=== PATIENT | male | born 1970 | race Hispanic/Latino ===

== ENCOUNTER → 2018-04-22 | Day surgery (SDC) | payer OTHER ==
[~2018-04-22] MED LIST: CLINDAMYCIN HC150 MG PO; DESFLURANE 240 ML BTL INH ONE; DEXAMETHASONE SOD PHOS INJ 4 MG/ML VIAL ONE; FENTANYL CITRATE/PF 100MCG/2 ML INJ ONE; GLYCOPYRROLATE INJ 1MG/ 5 ML SYR ONE; LIDOCAINE HCL 2% LOCAL INJ 5 ML SDV VIAL INJ ONE; MIDAZOLAM HCL 2 MG/2 ML VIAL ONE; NEOSTIGMINE 5 MG/5ML SYR ONE; ONDANSETRON HCL INJ 2MG/ML 2ML 2 MG/ML VIAL ONE; OXYMETAZOLINE HCL 0.05% NAS 1 SPRAY BTL ONE; PROPOFOL IV EMULSION 10 MG/ML 20 ML VIAL ONE; ROCURONIUM BROMIDE 10 MG/ML 5ML VIAL ONE; SUCCINYLCHOLINE 200 MG/10 ML SYR ONE
--- NOTE | 2018-04-22 08:37 | Operative Report ---
DATE OF PROCEDURE: April 22, 2018 PREOPERATIVE DIAGNOSES 1. Left throat pain. 2. Left posterior true vocal cord mass. POSTOPERATIVE DIAGNOSES 1. Left throat pain. 2. Left posterior true vocal cord mass. PROCEDURE: Direct operative microlaryngoscopy with operating microscope with biopsy of the left posterior true vocal cord mass. SIGNIFICANT FINDINGS: Soft tissue mass involving the left posterior true vocal cord sent for permanent section analysis. ANESTHESIA: General endotracheal tube anesthesia with a 7 ET tube using a [place] scope. ESTIMATED BLOOD LOSS: Less than 1 mL. COMPLICATIONS: None. SPECIMENS REMOVED: Left posterior true vocal cord mass. INDICATIONS: The patient is a 48-year-old male with greater than 2 months' history of left-sided throat pain. He denies dysphagia, cough, hoarseness, postnasal drip, globus sensation, throat clearing, neck masses, shortness of breath, or fever. He is a nonsmoker. He has had no previous throat or neck surgery. Flexible fiberoptic nasal laryngoscopy revealed a soft tissue mass in the posterior aspect of left true vocal cord near the junction with the arytenoid. On examination, the patient had the findings as described on flexible fiberoptic nasal laryngoscopy. Patient is scheduled for direct operative microlaryngoscopy with excision of left true vocal cord mass under general anesthesia. Risks and complications of the procedures were thoroughly discussed with patient, and include infection, bleeding, scarring, failure to improve, need for additional operations, damage to teeth, gums, tongue, and lips, possibility of inability to visualize the larynx and need to abort the procedure, possibility of malignancy and need for further treatment, permanent worsening of hoarseness, difficulty breathing, difficulty swallowing, need for blood transfusions, damage to surrounding nerves, blood vessels and muscles, persistent throat pain. He fully understands and gives consent. PROCEDURE: Patient was taken to the operating room and placed supine on the operating table where general anesthesia was achieved, using a 7 ET tube using a [place] scope due to the anterior positioning of the larynx. Intubation did require effort, but the patient was able to be intubated with the [place] scope. Following this, the table was turned 90 degrees with the head towards the surgeon. Eyes were taped. Plastic tooth guard was placed over the upper teeth. Decadron was administered. A Ce laryngoscope was then used to visualize the larynx, which required significant effort to visualize the larynx, and required neck pressure to the left in order to visualize the larynx. The endotracheal tube was seen in good position. The mass could be seen on the left posterior vocal cord. This was biopsied and sent for permanent section analysis. Because of the tenuous nature and difficulty placing the ET tube, decision was made not to remove the ET tube for further visualization. Hemostasis was obtained with a Cottonoid pledget soaked with Afrin. The Ce laryngoscope was then removed revealing no trauma to the teeth, gums, tongue, and lips. Patient was awakened in the operating room, extubated and taken to the recovery room in good condition. Job#: [id number] SHERI REECE
[2018-04-22 09:10] VITALS: BP 147/96
== END | disposition home or self-care (01) ==
LOC: OR 05:08
PROVIDERS: ATTEND Otolaryngology
DX: J38.3 Other diseases of vocal cords (principal); Z01.810 Encounter for preprocedural cardiovascular examination
CPT/HCPCS: 31536; 88305; 88312; 93005; J1100; J2001; J2250; J2405; J2704; J3490

== ENCOUNTER 2018-04-24 13:02 | Observation (INO) | payer OTHER ==
[~2018-04-24] VITALS: Ht 170.2 cm; Wt 114.8 kg
[2018-04-24 13:51] LABS: BASOPHILS # (AUTO) 0.1 (0.0-0.1); BASOPHILS % 0.5 % (0.0-1.0); EOSINOPHILS % 0.2 % (0.0-6.0); HEMATOCRIT 46.8 % (38.2-49.6); HEMOGLOBIN 16.2 g/dL (14.0-18.0); LYMPHOCYTES # (AUTO) 2.2 (1.0-3.2); MEAN CORPUSCULAR HEMOGLOBIN 30.4 pg (28-32); MEAN CORPUSCULAR HGB CONC 34.6 g/dL (31-35); MEAN CORPUSCULAR VOLUME 87.8 fL (81-99); MONOCYTES % 7.7 % (4.4-11.3); NEUTROPHILS # (AUTO) 9.8 (2.1-6.9); NEUTROPHILS % 74.1 % (38.7-80.0); PLATELET COUNT 188 x10e3/uL (140-360); RED BLOOD COUNT 5.33 x10e6/uL (4.3-5.7); RED CELL DISTRIBUTION WIDTH 12.8 % (11.7-14.4)
[2018-04-24] MEDS ORDERED: DEXAMETHASONE SOD PHOS 10 MG/1 ML VIAL IV ONE (14:00)
[2018-04-24] MEDS ORDERED: CLINDAMYCIN PHOS 900MG/ 50ML 50 ML IV ONE (14:00)
[2018-04-24 14:14] LABS: ALANINE AMINOTRANSFERASE 34 IU/L (0-55); ALKALINE PHOSPHATASE 118 IU/L (40-150); ANION GAP 15.7 mmol/L (8-16); BLOOD UREA NITROGEN 15 mg/dL (7-26); BUN/CREATININE RATIO 16 (6-25); CALCIUM 9.4 mg/dL (8.4-10.2); CARBON DIOXIDE 25 mmol/L (22-29); CHLORIDE 101 mmol/L (98-107); CREATININE, SERUM 0.93 mg/dL (0.72-1.25); EST GLOMERULAR FILTRATION RATE > 60 ML/MIN (60-); GLUCOSE 103 mg/dL (74-118); POTASSIUM 3.7 mmol/L (3.5-5.1); SODIUM 138 mmol/L (136-145)
[2018-04-24] MEDS ORDERED: MORPHINE SULFATE INJ 4 MG/ML INJ 1ML IV ONE (14:30)
[2018-04-24] MEDS ORDERED: ONDANSETRON HCL INJ 2MG/ML 2ML 2 MG/ML VIAL IV PRN (16:00)
[2018-04-24] MEDS ORDERED: SODIUM CHLORIDE 0.9% 1000ML 1,000 ML IV SCH (16:00)
[2018-04-24] MEDS ORDERED: MORPHINE SULFATE INJ 4 MG/ML INJ 1ML IV PRN (16:00)
[2018-04-24] MEDS ORDERED: SODIUM CHLORIDE 0.9% 1000ML 1,000 ML ONE (16:01)
[2018-04-24] MEDS ORDERED: SODIUM CHLORIDE 0.9% 1000ML 1,000 ML IV ONE (16:15)
--- NOTE | 2018-04-24 16:17 | Diagnostic Imaging Report ---
History: ^recent biopsy, trouble swallowing and pain ^[id number] ^1430 Comparison studies: None Technique: Axial, coronal and sagittal images from the skull base to the thoracic inlet. Coronal and sagittal images reconstructed from the axial data. Intravenous contrast: 100 cc of Omnipaque 300. Dose modulation, iterative reconstruction, and/or weight based adjustment of the mA/kV was utilized to reduce the radiation dose to as low as reasonably achievable. Findings: Soft tissues: Fatty stranding and a trace of emphysema at the left submandibular space surrounding ipsilateral submandibular gland. No drainable fluid collection. Fatty stranding is also noted at the left infrahyoid neck. Masses: None. Lymph nodes: Prominent left level 2 lymph nodes. No other radiographically significant adenopathy. Vessels: Arteries and veins are patent. Glands (thyroid, parotid and submandibular): Normal in size and symmetric. No masses. Orbits: No abnormalities. Paranasal sinuses: Clear. Temporal bones: No abnormalities. Skull base and facial bones: Intact. Cervical spine: Uncinate process and facet hypertrophy C3-C6 results in moderate bilateral foraminal and moderate canal stenosis at C6-7 IMPRESSION: Inflammatory changes with associated mild emphysema at the left submandibular space without drainable fluid collection. No intrinsic lesion of the left submandibular gland. Reactive left level 2 lymph nodes. Signed by: DR Eladio Dewey M.D. on 04/24/2018 4:13 PM
--- OUTSIDE RECORDS SUMMARY | 2018-04-24 16:53 | XMS REPORT ---
Author [facility] Address Unknown Phone Unavailable Care Team Providers Care Usability Architect Name Role Phone Sascha KINCAID Unavailable Unavailable Problems This patient has no known problems. Allergies, Adverse Reactions, Alerts This patient has no known allergies or adverse reactions. Medications This patient has no known medications. Results Test Description Test Time Test Comments Text Results Atomic Results Result Comments CT SOFT TISSUE NECK W 2018-04-24 16:04:00 [place] [id number] Patient Name: IGOR WALTON MR #: [id number] : 1970 Age/Sex: 48/M Req #: [id number] [facility] Physician: Ordered by: DENICE KINCAID MD Report #: [id number] Location: ER Room/Bed: Procedure: [id number] CT/CT SOFT TISSUE NECK W Exam Date: 04/24/18 Exam Time: 1430 REPORT STATUS: Signed History: recent biopsy, trouble swallowing and pain [id number] Comparison studies: None Technique: Axial, coronal and sagittal images from the skull base to the thoracic inlet. Coronal and sagittal images reconstructed from the axial data. Intravenous contrast: 100 cc of Omnipaque 300. Dose modulation, iterative reconstruction, and/or weight based adjustment of the mA/kV was utilized to reduce the radiation dose to as low as reasonably achievable. Findings: Soft tissues: Fatty stranding and a trace of emphysema at the left submandibular space surrounding ipsilateral submandibular gland. No drainable fluid collection. Fatty stranding is also noted at the left infrahyoid neck. Masses: None. Lymph nodes: Prominent left level 2 lymph nodes. No other radiographically significant adenopathy. Vessels: Arteries and veins are patent. Glands (thyroid, parotid and submandibular): Normal in size and symmetric. No masses. Orbits: No abnormalities. Paranasal sinuses: Clear. Temporal bones: No abnormalities. Skull base and facial bones: Intact. Cervical spine: Uncinate process and facet hypertrophy C3-C6 results in moderate bilateral foraminal and moderate canal stenosis at C6-7 IMPRESSION: Inflammatory changes with associated mild emphysema at the left submandibular space without drainable fluid collection. No intrinsic lesion of the left submandibular gland. Reactive left level 2 lymph nodes. Signed by: DR Eladio Dewey M.D. on 04/24/2018 4:13 PM Dictated By: ELADIO DEWEY MD [id number] Transcribed By: LUCI on 04/24/18 1613 COPY TO: DENICE KINCAID MD
[2018-04-24 17:05] VITALS: BP 136/90
[2018-04-24] MEDS: SODIUM CHLORIDE 0.9% 1000ML 1,000 ML IV SCH (17:06)
--- NOTE | 2018-04-24 17:06 | NUR ---
RECD PT FROM ER VIA W/C AAOX3,PAIN LEVEL 4 TO LEFT NECK,IVF INFUSING TO RT AC 20 GAUGE ,PT APHASIC,HOB ELEVATED ,CALL HOPKINS IN REACH, AT BEDSIDE
[2018-04-24] MEDS ORDERED: DEXAMETHASONE SOD PHOS 10 MG/1 ML VIAL IV SCH (18:00)
[2018-04-24] MEDS ORDERED: IOPAMIDOL 370 MG/ML 200 ML INFUS..BTL INJ ONE (18:02)
[2018-04-24] MEDS ORDERED: SODIUM CHLORIDE 0.9% 50ML 50 ML ONE (18:02)
--- NOTE | 2018-04-24 18:13 | History and Physical ---
CHIEF COMPLAINT: Throat pain and neck swelling. HISTORY OF PRESENT ILLNESS: Patient is a 48-year-old male who suffered from 2 months history of intermittent left-sided throat pain that lasted seconds at a time. There was no associated dysphagia, cough, hoarseness, postnasal drip, Globus sensation, throat clearing and large palpable neck masses shortness of breath or fever. He is a nonsmoker. He has had no previous throat or neck surgery. He denied GERD symptoms. Physical exam with flexible fiberoptic nasolaryngoscopy revealed a soft tissue mass in the left posterior true vocal cord at the junction with the arytenoid. Patient underwent direct operative suspension microlaryngoscopy with biopsy of left posterior true vocal cord mass intraoperatively under general anesthesia on April. Postoperatively, patient developed severe left-sided throat pain and odynophagia with tender swelling involving the anterior superior neck mostly in the left submandibular area. Patient has not been able to swallow at all. Patient did not improve despite liquid hydrocodone and acetaminophen elixir. Patient presented to the [facility] Emergency Room today. He underwent CT neck. PAST MEDICAL HISTORY: None. PAST SURGICAL HISTORY: SHAWNA GRIER. Direct operative suspension microlaryngoscopy with operating microscope and biopsy of left true vocal cord mass. ALLERGIES: NO KNOWN DRUG ALLERGIES. MEDICATIONS: HYDROCODONE AND ACETAMINOPHEN ELIXIR (at home). SOCIAL HISTORY: He is not a smoker and he is an occasional drinker. PHYSICAL EXAMINATION GENERAL: Patient is an overweight male, appearing stated age, lying in bed with throat pain. HEENT: Face is symmetric. Nasal exam is clear. Oral cavity and oropharynx revealed an enlarged tongue, which is normal for the patient as well as crowded oropharynx, which is also normal for the patient. There is no evidence of any laceration, abnormal pathologic swelling, tenderness or erythema in the oral cavity and oropharynx. Oral cavity and oropharyngeal exam revealed evidence of enlarged tongue and crowded oropharynx, which is long standing consistent with obstructive sleep apnea, but there is no evidence of trauma, infection, or swelling. NECK: Reveals moderately indurated swelling involving the upper neck anteriorly, worse on the left than the right with the center in the left submandibular gland area. FLEXIBLE FIBEROPTIC NASOLARYNGOSCOPY: Reveals patent airway with patent glottis and laryngeal lumen. Vocal cords are mobile bilaterally. Base of tongue is clear. There is mild ecchymotic edema of the left pharyngeal wall consistent with trauma. IMAGING: CT neck reveals inflammatory changes with associated mild emphysema in the left submandibular space without purulence or fluid collection. ASSESSMENT: Left-sided throat pain, left submandibular area neck swelling due to possible secondary infection stemming from trauma associated with recent direct operative suspension microlaryngoscopy. PLAN: IV fluid hydration, pain control, antibiotic coverage in the form of clindamycin, and steroids in the form of Decadron. Job#: [id number] LUIGI REECE
[2018-04-24 20:22] VITALS: BP 126/67
[2018-04-24] MEDS: CLINDAMYCIN PHOS 900MG/ 50ML 50 ML IV SCH (22:01)
[2018-04-25] VITALS (8 sets, daily range): BP systolic 100–137; BP diastolic 53–88
--- NOTE | 2018-04-25 00:48 | NUR ---
Patient laying in bed with HOB slightly elevated. AAO x 4. No SOB note. Patient denies of any pain. Bed at low position and locked. Call light within reach. Patient currently in stable condition, will continue to monitor.
[2018-04-25] MEDS: DEXAMETHASONE SOD PHOS INJ 4 MG/ML VIAL IV SCH ×4 (00:50→18:00)
[2018-04-25] MEDS: SODIUM CHLORIDE 0.9% 1000ML 1,000 ML IV SCH ×3 (01:58→18:45)
[2018-04-25 05:47] LABS: BASOPHILS % 0.2 % (0.0-1.0); HEMATOCRIT 41.5 % (38.2-49.6); HEMOGLOBIN 14.6 g/dL (14.0-18.0); LYMPHOCYTES # (AUTO) 1.3 (1.0-3.2); LYMPHOCYTES % 10.1 % (18.0-39.1); MEAN CORPUSCULAR HEMOGLOBIN 30.5 pg (28-32); MEAN CORPUSCULAR HGB CONC 35.2 g/dL (31-35); MEAN CORPUSCULAR VOLUME 86.6 fL (81-99); MONOCYTES # (AUTO) 0.2 (0.2-0.8); MONOCYTES % 1.5 % (4.4-11.3); NEUTROPHILS % 87.6 % (38.7-80.0); PLATELET COUNT 187 x10e3/uL (140-360); RED BLOOD COUNT 4.79 x10e6/uL (4.3-5.7); RED CELL DISTRIBUTION WIDTH 12.3 % (11.7-14.4)
[2018-04-25] MEDS: CLINDAMYCIN PHOS 900MG/ 50ML 50 ML IV SCH ×3 (06:04→21:42)
[2018-04-25 06:09] LABS: ALANINE AMINOTRANSFERASE 28 IU/L (0-55); ALBUMIN 3.2 g/dL (3.5-5.0); ALBUMIN/GLOBULIN RATIO 0.8 (0.8-2.0); ALKALINE PHOSPHATASE 103 IU/L (40-150); ANION GAP 12.8 mmol/L (8-16); BLOOD UREA NITROGEN 13 mg/dL (7-26); BUN/CREATININE RATIO 18 (6-25); CALCIUM 8.6 mg/dL (8.4-10.2); CARBON DIOXIDE 23 mmol/L (22-29); CHLORIDE 104 mmol/L (98-107); CREATININE, SERUM 0.72 mg/dL (0.72-1.25); EST GLOMERULAR FILTRATION RATE > 60 ML/MIN (60-); GLUCOSE 143 mg/dL (74-118); POTASSIUM 3.8 mmol/L (3.5-5.1); SODIUM 136 mmol/L (136-145)
--- NOTE | 2018-04-25 07:30 | NUR ---
PT UP IN RECLINER ,DENIES PAIN,LEFT SIDE JAW STILL SWOLLEN ,TOLERATING LIQUIDS WELL
--- NOTE | 2018-04-25 15:30 | NUR ---
DRSG TO LT FOOT CHANGED OPRDERED,
--- NOTE | 2018-04-25 18:10 | NUR ---
PT UP IN CHAIR TOLERATED REGULAR DIET WELL
--- NOTE | 2018-04-25 19:58 | NUR ---
RECEIVED PT SITTING ON THE CHAIR .PT DENIES PAIN .FAMILY AT THE BEDSIDE .CALL LIGHT WITH IN REACH .CONTINUE TO MONITOR .
[2018-04-26] VITALS: BP 127/67
[2018-04-26 04:00] VITALS: BP 134/73
[2018-04-26] MEDS: SODIUM CHLORIDE 0.9% 1000ML 1,000 ML IV SCH (06:15)
[2018-04-26] MEDS: DEXAMETHASONE SOD PHOS INJ 4 MG/ML VIAL IV SCH ×2 (06:15)
[2018-04-26] MEDS: CLINDAMYCIN PHOS 900MG/ 50ML 50 ML IV SCH (06:15)
--- NOTE | 2018-04-26 06:51 | NUR ---
PT RESTED DURING THE NIGHT AND DENIES PAIN .CALL LIGHT WITH IN REACH .CONTINUE TO MONITOR .REPORT GIVEN TO THE ONCOMING NURSE
--- NOTE | 2018-04-26 07:11 | NUR ---
PT RESTED DURING THE NIGHT ,DENIES PAIN .CALL LIGHT WITH IN REACH .CONTINUE TO MONITOR
[2018-04-26 07:40] VITALS: BP 135/69
--- NOTE | 2018-04-26 09:23 | Discharge Summary ---
CHIEF COMPLAINT: Throat pain, odynophagia, and neck swelling. HISTORY OF PRESENT ILLNESS: Patient is a 48-year-old male who underwent direct operative suspension microlaryngoscopy with operating microscope with biopsy of left posterior true vocal cord mass on April. Patient developed neck swelling in the superior aspect of the anterior neck (worse on the left) in the left submandibular triangle. He also had severe throat pain with associated severe odynophagia that prevented him from being able to drink liquids or eat solid food. Patient developed significant dehydration and the patient was directed to the emergency room at [facility] on Tuesday, April 24, 2018. PHYSICAL EXAMINATION: Face was symmetric. Nasal exam was clear. Oral cavity, oropharynx was normal except for evidence of signs of obstructive sleep apnea (enlarged tongue and crowded oropharynx). Neck exam revealed indurated nonfluctuant swelling in the anterior superior neck, worse on the left. Flexible fiberoptic nasal laryngoscopy revealed patent glottis with bilaterally mobile true vocal cords. He had some ecchymotic mucosal swelling on the left lateral pharyngeal wall. HOSPITAL COURSE: Patient was admitted on April 24, 2018. Patient underwent a CT of the neck, which revealed inflammatory changes with associated mild emphysema in the left submandibular space without purulence or fluid collection. Patient was treated with IV fluid hydration, pain control as well as Decadron and clindamycin intravenously. Patient made significant improvements rapidly to the point that patient was able to drink liquids and eat foods without problems. He did not have fever, shortness of breath during the hospital course. DISCHARGE INSTRUCTIONS: Patient was discharged home on Thursday, April 26, 2018. He was to follow up with Dr. Lu in 1 week on Thursday, May 03, 2018. DIET: Regular. ACTIVITY: Regular. MEDICATIONS AT HOME: Clindamycin 450 mg p.o. q.8h. for 7 days. MYRTLE LU M.D. Job#: [id number] DR REECE
[2018-04-26 11:23] VITALS: BP 128/67
[2018-04-26] MEDS ORDERED: CLINDAMYCIN HC150 MG PO (11:25)
--- NOTE | 2018-04-26 12:42 | NUR ---
PATIENT DISCHARGE HOME- PATIENT OFF THE UNIT AT 1141 PER WHEELCHAIR ACCOMPANIED BY RN TO THE FRONT LOBBY. PATIENT IS IN STABLE CONDITION WITH NO S/S OF RESPIRATORY DISTRESS. NO PAIN VOICED. IV REMOVED WITH TIP INTACT AT 1219. DISCHARGE TEACHING, INSTRUCTIONS, AND MEDICATION GIVEN TO THE PATIENT. ALL PERSONAL ITEMS TAKEN WITH PATIENT AND HIS .
== END 2018-04-26 11:41 | disposition home or self-care (01) ==
LOC: ER 13:02 → ERHOLD 16:51 → MED/SURG3 17:06
PROVIDERS: ADMIT Otolaryngology; ATTEND Otolaryngology
DX: R07.0 Pain in throat (principal); R13.10 Dysphagia, unspecified; R22.1 Localized swelling, mass and lump, neck; E86.0 Dehydration; Z98.890 Other specified postprocedural states
CPT/HCPCS: 36415 ×2; 70491; 80053 ×2; 85025 ×2; 96365; 99284; G0378 ×3; J1100 ×4; J2270; J7030 ×3; Q9967